=== PATIENT | male | born 1950 | race Caucasian/White ===

== ENCOUNTER 2019-09-25 13:52 | Inpatient (IN) | payer OTHER ==
[~2019-09-25] VITALS: Ht 172.7 cm; Wt 93.2 kg
--- NOTE | ~2019-09-25 | HC ---
[facility] [place] [address] CONSULTATION Name: MIRTHA COLON Room #: 211-P ADM IN M.R.#: [id number] Admission: 09/25/19 Attend Phys: Sol Daniel MD Discharge: Date of : 50 Report #: [id number] THIS REPORT FOR: cc: [facility] - Family physician unknown FAM - Family physician unknown Jean-Pierre Oconnell MD ~ CC: [facility] unknown Sol Daniel DATE OF SERVICE: 09/27/2019 HISTORY OF PRESENT ILLNESS: The patient is a 69-year-old white male who was admitted with worsening weakness, had a fall, unwitnessed at home. The weakness has been going on for a couple of weeks. He is noted to have some left-sided chest wall pain and bilateral large axillary masses, left greater than right. He has now undergone a biopsy of the left axillary mass. Workup revealed probable encasement of the subclavian vessels. We are seeing him in rehabilitation medicine consultation. PAST MEDICAL HISTORY: Includes a prior CVA with CT of the head, documenting left frontal and large right high convexity parietal infarctions. There is a large encephalomalacia of the right parietal lobe. He has a history of a seizure disorder. There is a history of past ETOH and tobacco abuse. There also is a past history of a head injury back in age 29. He was noted to be prior history of memory problems. Also has some evidence of obesity. ALLERGIES: No known drug allergies. MEDICATIONS: Please see the full medication listing. FAMILY HISTORY: Noncontributory. HABITS: Apparently quit smoking 10 years ago and he has had a prior heavy alcohol intake when younger, but no ETOH usage in the past 15 years. SOCIAL HISTORY: Lives in a house with his significant other, no steps. Premorbid cane ambulator. His significant other/lady friend, apparently does not work outside the home. REVIEW OF SYSTEMS: Did not offer any current complaints of chest pain, shortness of breath or abdominal discomfort. PHYSICAL EXAMINATION: GENERAL: A 69-year-old white male, in no obvious distress. VITAL SIGNS: Last recorded temperature 98.3, pulse 74, respirations 18, blood pressure 136/85. [facility] [address] [place] [address] CONSULTATION Name: MIRTHA COLON Room #: 211-P [facility] IN .R.#: [id number] Admission: 09/25/19 Attend Phys: Sol Daniel MD Discharge: Date of : 50 Report #: [id number] NEUROLOGIC: He is alert. He is a fair historian. He does follow basic 1 step commands. He was not aware that he had these large masses under his armpit prior to admission. Facies appeared symmetric somewhat unkempt. Band-Aid in place over the left axillary area. He does have a large firm mass in the axilla and anterior to the axillary fossa. I could not detect any focal left hand and arm weakness with gentle testing. Appears to have good strength of the right upper extremity with a good criminal investigative agent. His lower extremities tone appeared reasonably intact. Strength is probably a grade 4-/5 to 3+/5. ASSESSMENT: A 69-year-old white male with the following problem list: 1. Unwitnessed fall. 2. Increased weakness for the past 2 weeks. 3. Left-sided chest wall pain with large bilateral axillary masses. He is status post biopsy earlier today. 4. Prior cerebrovascular accident with large right parietal encephalomalacia. 5. Seizure disorder. 6. Hyperglycemia. PLAN: Therapy to evaluate. Note that his significant other is durable power of bankruptcy attorney. At this point, we will need to see how he does in therapies and follow along with you. Thank you for asking us to assist in this patient's care. By: [id number] Jean-Pierre Oconnell MD /FILIPE
--- NOTE | ~2019-09-25 | H ---
[facility] [place] [address] HISTORY AND PHYSICAL Name: MIRTHA COLON Room #: 211-P ADM IN M.R.#: [id number] Admission: 09/25/19 Attend Phys: Sol Daniel MD Discharge: Date of : 50 Report #: [id number] THIS REPORT FOR: //name// CC: FAM unknown Sol Daniel DATE OF SERVICE: 09/25/2019 The patient was seen and examined in the Emergency Room on 09/25/2019 at 6:30 p.m. PRIMARY CARE PHYSICIAN: Dunia Beltran NP, . Durable power of criminal attorney for [facility] and the emergency contact is Francisca Alcazar, . CHIEF COMPLAINT: 1. Right-sided chest wall pain for the last 2-3 days. 2. The patient sustained a fall today, at which time the EMS was brought for further evaluation. HISTORY OF PRESENT ILLNESS: The patient is a very pleasant 69-year-old gentleman with a past medical history significant for hypertension, seizure disorder, a prior stroke, and questionable coronary artery disease, but the patient is unable to recall; however, he informs me that 2-3 days ago, he started having left-sided chest wall pain and it is like a knife stuck into his arm. The patient informs me that pain is radiating in the back behind the scapular area and he also is having a little bit of discomfort on the right side, but not as much. The patient sustained a fall this morning and EMS was called by his significant other as the patient also has been noted to have progressively worsening weakness for past 2 weeks. The patient is unable to tell me how the fall happened and EMS informed the patient did not have any syncopal episode and there was no head injury involved in that, and there was no seizure activity. No urinary incontinence or stool incontinence noted either. The patient does not recall any fever, shaking chills, or night sweats. He informs me that he has nocturia 2-3 times at night, but he has not had any dysuria, frequency, urgency of urination. The patient was under the impression that his significant other Francisca Alcazar's sister Jennifer had brought him to the Emergency Room because he had been getting weaker and weaker, but RN in the Emergency Room updated the patient that he was brought by Fire Department. The patient seems to have some lapses in his memory. He is noted to have hyperglycemia; however, informs me that he has not been told to have diabetes. The patient denies any visual symptoms, vision problems, or denies any dysphagia, weakness, or numbness of any part of the body and denies any cough, cold, or exposure to respiratory symptoms in recent past. [facility] [address] [place] [address] HISTORY AND PHYSICAL Name: MIRTHA COLON Room #: 211-P [facility] IN M.R.#: [id number] Admission: 09/25/19 Attend Phys: Sol Daniel MD Discharge: Date of : 50 Report #: [id number] PAST MEDICAL HISTORY: Significant for: 1. Hypertension. 2. Seizure disorder. 3. Prior ischemic stroke. 4. Obesity. ALLERGIES: The patient has no known drug allergies. CURRENT MEDICATIONS: 1. Amlodipine. 2. Lisinopril. 3. Metoprolol. 4. Aspirin 325 mg daily. 5. Carbamazepine. 6. Keppra. 7. Gabapentin. 8. Atorvastatin. SOCIAL HISTORY: The patient informs me that he quit smoking 10 years ago approximately and he started smoking when he was 12 years old and had smoked 1 pack per day. Denies any recreational drug use. 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 PAST SURGICAL HISTORY: The patient has had a head injury when he was 29 years old and he needed to get a surgery done at that time as he recalls, but unable to give me any details of that. FAMILY HISTORY: The patient informs me that mom is alive; however, the patient has not had any contact with her. Father and he is unable to recall if he had any health problems. REVIEW OF SYSTEMS: Ten-point review of system was done and was partly limited because of the patient's inability to recall things. We will revisit review of system when one of the family members, who lives with the patient, is at the bedside. PHYSICAL EXAMINATION: VITAL SIGNS: Temperature 36.7, heart rate of 88, respirations 16, blood pressure 177/89, pulse oximeter 94% on room air, and a body mass index of 32.1 with a weight 61.24 kilos, pulse oximeter 94% on room air. GENERAL: Alert and oriented to place, being a hospital, but does not know name of the hospital and oriented to person and is in no acute distress. HEENT: The patient has atraumatic and normocephalic head. Pupils are equally round and reactive to light and conjunctivae clear. Extraocular muscle movement intact. The patient is able to follow directions for physical exam. Oropharynx [facility] [address] [place] [address] HISTORY AND PHYSICAL Name: MIRTHA COLON Room #: 211-P [facility] IN .R.#: [id number] Admission: 09/25/19 Attend Phys: Sol Daniel MD Discharge: Date of : 50 Report #: [id number] is clear. Uvula midline. Angle of mouth symmetrical. Mucous membranes are moist. NECK: Supple, no JVD, no lymphadenopathy. HEART: S1, S2, regular. No murmur, no S3, no S4. LUNGS: Clear to auscultation with distant breath sounds noted. CHEST WALL: The patient has a large axillary mass with ill-defined margins; however, the patient is uncomfortable with the exam with extension of the axilla as well as posteriorly. The patient also has a mass in the right axilla noted as well. NECK: Supple. No JVD, no lymphadenopathy. ABDOMEN: Soft, nontender, nondistended, normal active bowel sounds, obese abdomen, hard to evaluate organomegaly. EXTREMITIES: The patient has no edema both lower extremities. NEUROLOGIC: The patient is moving all 4 extremities and has normal tone and deep tendon reflexes are 2/4 at knees bilaterally. SKIN: Without any skin breakdown. LABORATORY DATA AND X-RAYS: The patient had a urinalysis with pH 5.5, specific gravity 1.020, and trace protein, otherwise completely negative urinalysis. Coagulation panel: PT 10.5, INR 1.0, PTT 26.2. Chemistries indicate a phosphorus of 3.2, magnesium 1.9, BUN 20, creatinine 1.2, sodium 140, potassium low at 3.0, chloride 102, bicarbonate 28, anion gap 10, BUN 20, creatinine 1.2, GFR 60, glucose elevated at 223. Hemoglobin A1c added to the labs. AST elevated at 68, ALT 82, alkaline phosphatase 108. Troponin I less than 0.06, total protein 7.9, and albumin 3.5. The patient had a chest x-ray done in the Emergency Room, which indicated no acute pulmonary process and a CT of the chest without contrast was done, which indicates huge lobular soft tissue mass, 14 x 12 x 12 cm extending into the lateral left chest wall as well as a right axillary region mass, 4.2 x 4.0 x 5.3 cm, and the lungs are clear, heart size is normal, and no evidence of mediastinal adenopathy noted. Thoracolumbar spondylosis noted, probable encasement of his subclavian vessels noted. Electrocardiogram was done in the Emergency Room, which indicates a normal sinus rhythm with possible old anteroseptal infarct. No previous EKG available for comparison. ASSESSMENT AND PLAN: 1. Unwitnessed fall. The patient has normal neurological exam and no evidence of head injury; however, we will go ahead and get a CT C-spine as well as CT head noncontrast. The patient denies any syncopal episode; however, we will place fall precautions and PT, OT consult. 2. Left-sided chest wall pain with bilateral large masses. We will go ahead and place General Surgery consult and we will wait for their feedback on whether to involve CTS. The patient has taken 325 mg aspirin every day. At this time, we will hold and change it to 81 mg daily aspirin [place] [address] HISTORY AND PHYSICAL Name: MIRTHA COLON Room #: 211-P ADM IN M.R.#: [id number] Admission: 09/25/19 Attend Phys: Sol Daniel MD Discharge: Date of : 50 Report #: [id number] further surgery plan. Also, we will discuss with durable power of criminal attorney for health and significant other about duration of this mass and we will try to contact the PCP as well. 3. Hypertension, poorly controlled. We will resume all blood pressure medications. Sinus bradycardia is noted during hospital stay and so we will cut back on metoprolol and monitor heart rate and blood pressure. 4. Seizure disorder. The patient is on Keppra and carbamazepine, we will resume and discuss with the DPOA about neurologist as well as when was the last seizure, and may need a Keppra levels and carbamazepine levels with tomorrow morning labs. 5. Hyperglycemia noted. The patient denies any history of diabetes. A1c is requested and we will go ahead and do Accu-Cheks q.i.d., a.c., and at bedtime and sliding scale insulin. 6. Prior questionable history of coronary artery disease, stroke, and a traumatic brain injury as the patient recalls when he was 29 years old; however, we will get a detailed history from the DPOA and significant other who has been with the patient for more than 30 years and see if we can get more history on these health problems or issues or if we can contact PCP. We will get medical records from Dr. Malcolm and Dunia Beltran. 7. CODE STATUS: The patient is a full code. 8. Deep venous thrombosis prophylaxis with Lovenox and gastrointestinal prophylaxis with Pepcid. By: [id number] Sol Daniel MD /nt
[2019-09-25 13:52] VITALS: BP 177/89
[2019-09-25] MEDS ORDERED: CARBAMAZEPINE100 M2 PO (14:32)
[2019-09-25] MEDS ORDERED: NEURONTIN 300M300 M2 PO (14:32)
[2019-09-25] MEDS ORDERED: NEURONTIN300 MG PO (14:32)
[2019-09-25] MEDS ORDERED: LOPRESSOR50 MG PO (14:33)
[2019-09-25] MEDS ORDERED: AMLODIPINE BESY10 MG PO (14:33)
[2019-09-25] MEDS ORDERED: ASPIRIN325 PO (14:34)
[2019-09-25] MEDS ORDERED: LIPITOR40 MG PO (14:50)
[2019-09-25] MEDS ORDERED: KEPPRA XR750 MG PO (14:51)
[2019-09-25] MEDS ORDERED: LISINOPRIL2.5 MG PO (14:51)
[2019-09-25 15:28] LABS: ABSOLUTE NEUTROPHILS 9.2 thou/uL (1.4-8.2); BASOPHILS 0.7 % (0.0-2.0); EOSINOPHILS 0.9 % (0.0-3.0); HEMATOCRIT 44.3 % (42.0-52.0); LYMPHOCYTES 9.5 % (24.0-44.0); MCV 91.2 fL (80.0-100.0); MONOCYTES 7.1 % (1.0-8.0); PLATELET COUNT 191 thou/uL (150-400); POLYS 81.8 % (36.0-66.0); RBC 4.86 mil/uL (4.50-6.00); RDW 14.1 % (10.5-14.5); WBC 11.2 thou/uL (4.0-11.0)
[2019-09-25 16:14] LABS: ANION GAP 10 mmol/L (7-16); BUN 20 mg/dL (7-18); CALCIUM 8.6 mg/dL (8.5-10.1); CHLORIDE 102 mmol/L (98-107); CO2 28 mmol/L (21-32); CREATININE 1.2 mg/dL (0.7-1.3); GLUCOSE 223 mg/dL (74-106); SODIUM 140 mmol/L (136-145)
[2019-09-25 16:19] LABS: ALBUMIN 3.5 g/dL (3.4-5.0); SGOT 68 U/L (15-37); SGPT 82 U/L (30-65); TOTAL BILIRUBIN 0.5 mg/dL (<0.1-1.0); TOTAL PROTEIN 7.9 g/dL (6.4-8.2); TROPONIN-I <0.06 ng/mL (<0.06)
--- NOTE | 2019-09-25 16:22 | EKG ---
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1950 Requested By: Caitlyn Davis Order Number: [id number] MD: Pardeep Headley Measurements Intervals [place] Rate: 86 P: 23 TN: 188 QRS: 18 QRSD: 93 T: 15 QT: 378 QTc: 452 Interpretive Statements Sinus rhythm Probable anteroseptal infarct, old Baseline wander in lead(s) V2,V3,V6 No previous ECG available for comparison Electronically Signed On 09-25-2019 16:21:12 SYSTEMS REQUIREMENTS PLANNER by Pardeep Headley [email or web address] <ELECTRONICALLY SIGNED> By: Pardeep Headley MD 09/25/19 1621 140 140 Pardeep Headley MD /RANDY
[2019-09-25 17:36] LABS: MAGNESIUM 1.9 mg/dL (1.8-2.4); PHOSPHORUS 3.2 mg/dL (2.5-4.9)
[2019-09-25 17:44] LABS: APTT 26.2 Seconds (24.5-32.8); PROTIME 10.5 Seconds (9.3-11.4)
[2019-09-25 17:59] LABS: URINE BILIRUBIN NEGATIVE (Negative); URINE BLOOD NEGATIVE (Negative); URINE CLARITY CLEAR; URINE COLOR YELLOW; URINE GLUCOSE-RANDOM* NEGATIVE (Negative); URINE KETONES NEGATIVE (Negative); URINE LEUKOCYTES-REFLEX NEGATIVE (Negative); URINE NITRITE-REFLEX NEGATIVE (Negative); URINE PROTEIN (DIPSTICK) TRACE (Negative)
[2019-09-25 21:55] VITALS: BP 162/89
[2019-09-25 22:17] VITALS: BP 162/89
[2019-09-25 23:51] VITALS: BP 177/100
[2019-09-26 04:07] LABS: GLYCOHEMOGLOBIN (HGB A1C) 5.4 % (4.8-5.6)
--- NOTE | 2019-09-26 06:08 | NUR ---
PT ARRIVED ON UNIT AROUND 2214. PT C/O PAIN TO LEFT UPPER EXTREMITY AND LEFT LOWER EXTREMITY. PT FELL ASLEEP DURING INITIAL ASSESSMENT ADMISSION. WHEN PT AWAKENED IN MORNING ADMISSION WAS COMPLETED TO BEST OF PATIENT KNOWLEDGE. HE IS UNABLE TO FULLY SIGN AND NOT FULLY ORIENTED TO GIVE INFORMATION. PT STATES THAT CAREGIVER "ANABELLE" IS THE BEST PERSON TO CONTACT HOWEVER HE DOES NOT KNOW CONTACT INFORMATION. WILL CONTINUE TO MONITOR PT THRU NIGHT PER PHYSICIAN ORDERS.
[2019-09-26 06:09] LABS: ABSOLUTE NEUTROPHILS 5.9 thou/uL (1.4-8.2); BASOPHILS 0.7 % (0.0-2.0); EOSINOPHILS 1.5 % (0.0-3.0); HEMOGLOBIN 14.3 gm/dL (14.0-18.0); LYMPHOCYTES 21.5 % (24.0-44.0); MCH 31.8 pg (26.0-34.0); MCHC 34.8 g/dL (28.0-37.0); MCV 91.4 fL (80.0-100.0); MONOCYTES 9.6 % (1.0-8.0); PLATELET COUNT 162 thou/uL (150-400); POLYS 66.7 % (36.0-66.0); RBC 4.49 mil/uL (4.50-6.00); RDW 14.2 % (10.5-14.5); WBC 8.8 thou/uL (4.0-11.0)
[2019-09-26 06:41] LABS: CALCIUM 8.3 mg/dL (8.5-10.1); CREATININE 1.1 mg/dL (0.7-1.3); PHOSPHORUS 3.9 mg/dL (2.5-4.9); POTASSIUM 3.6 mmol/L (3.5-5.1)
[2019-09-26 07:40] VITALS: BP 180/89
[2019-09-26 11:30] VITALS: BP 177/81
[2019-09-26 16:30] VITALS: BP 152/83
--- NOTE | 2019-09-26 17:24 | NUR ---
Case opened to follow for dc planning. Warehouse Laborer visited with the pt and his sign other/caregiver Francisca at bedside. The pt indicates he had a stroke 2 years ago and he [place] [facility] He had some hh after but had been doing pretty well. His sign other lives with him. Their home has no steps to enter and is all on one level. He functions with a rwalker and has a w/c. He was supervision with toileting and bathing prior to admission. He c/o pain and chills. Nursing notified. He is worried that he has cancer. He indicates that he is receptive to hh or rehab pending his progress. He feels like his lt sided weakness is worse than normal and is concerned about his mobility. Cm role introduced. Will ask for therapy evals and a Rehab consult.
[2019-09-26 19:55] VITALS: BP 167/85
[2019-09-27 04:50] VITALS: BP 176/112
--- NOTE | 2019-09-27 05:45 | NUR ---
ASSUMED PT CARE AROUND 1910. PT RESTING IN BED. PT IS ALERT AND ORIENTED AT TIMES BUT CAN BE FORGETFUL. PT C/O PAIN TO LEFT ARM. PT CAN BE INCONTINENT AT TIMES AND CONDOM CATH PLACED. PT WAS ABLE TO REST THRU NIGHT WITH MINIMAL INTERRUPTIONS. WILL CONTINUE TO MONITOR PT PER PLAN OF CARE.
[2019-09-27 07:20] VITALS: BP 182/98
[2019-09-27 10:00] VITALS: BP 136/85
--- NOTE | 2019-09-27 14:59 | NUR ---
THERAPY RECOMMENDING REHAB STAY. PT AND HIS SIGN OTHER ANABELLE ARE AGREEABLE. [facility] IN PROGRESS AND THEY DO HAVE A BED TODAY IF ACCEPTED. [facility] WOULD BE HIS SECOND CHOICE IF [facility] DENIES. [facility] MIGHT BE A SNF OPTION IF NEEDED. PT'S S.O. CONFIRMS THAT THE PT IS NORMALLY INDEP WITH GAIT AND ADL'S. SHE PROVIDES SUPERVISION AND SOME SETUP WELL IADL'S IN THE HOUSE. HE IS MOTIVATED TO RETURN HOME INDEP POSSIBLE.
[2019-09-27] MEDS ORDERED: ASA81BEC PO (15:18)
[2019-09-27] MEDS ORDERED: FLOMAX0.4 MG PO (15:20)
[2019-09-27] MEDS ORDERED: ENOXAPARIN40 MG/0.1 SUBQ (15:20)
[2019-09-27] MEDS ORDERED: IPRAT-ALBUT 0.5-3 ML INH (15:21)
--- NOTE | 2019-09-27 16:47 | NUR ---
ASSUMMED PT CARE AT APPROXIMATELY 0700. PT AWAKE AND ORIENTED TO PERSON, SITUATION, AND TIME. ASSESSMENT CHARTED. FALL PRECAUTIONS IN PLACE. PT DENIES HAVING CHEST PAIN. PT DENIES HAVING SOB. PT STATED HIS L SIDE AND L UPPER EXTREMITY HAD PAIN. PT RECIEVED ANALGESICS. PT STATED ANALGESICS HELPED RELIEVE PAIN. PT HAD L MASS BIOPSY TODAY. PT DISCHARGING TO [facility] TODAY. IV DC. TELE DC. VITAL SIGNS STABLE. BLOOD SUGARS STABLE. PT COMFORTABLE. PT DENIES HAVING FURTHER CONCERNS. PT RECIEVED DISCHARGE EDUCATION. PT STATED UNDERSTANDING AND DENIED HAVING FURTHER CONCERNS.
[2019-09-27] MEDS ORDERED: TEGRETOL200 MG PO (20:51)
[2019-09-27] MEDS ORDERED: KEPPRA 500 MG500 MG PO (20:52)
== END 2019-09-27 17:08 | DRG 581 ==
LOC: ER 13:52 → 2N 17:25 → EROBS 17:25 → 2N 22:10 → ENTRNSPT 09-27 16:48 → 2N 09-27 17:08
PROVIDERS: Physician Assistant; ADMIT Internal Medicine
PROC: 07B63ZX Excision of Left Axillary Lymphatic, Percutaneous Approach, Diagnostic (ICD-10-PCS; principal; 2019-09-27)
DX: R22.2 Localized swelling, mass and lump, trunk (principal); I10 Essential (primary) hypertension; E87.6 Hypokalemia; G40.909 Epilepsy, unspecified, not intractable, without status epilepticus; R73.9 Hyperglycemia, unspecified; E66.9 Obesity, unspecified; F03.90 Unspecified dementia, unspecified severity, without behavioral disturbance, psychotic disturbance, mood disturbance, and anxiety; J44.9 Chronic obstructive pulmonary disease, unspecified; Z86.73 Personal history of transient ischemic attack (TIA), and cerebral infarction without residual deficits; Z68.31 Body mass index [BMI] 31.0-31.9, adult
CPT/HCPCS: 10081

== ENCOUNTER 2019-09-27 16:04 | Inpatient (IN) | payer OTHER ==
[~2019-09-27] VITALS: Ht 172.7 cm; Wt 93.4 kg
--- NOTE | ~2019-09-27 | PLAN ---
[facility] [address] [address] REHAB UNIT PLAN OF CARE Name: MIRTHA COLON Room #: 511-P ADM IN M.R.#: [id number] Admission: 09/27/19 Attend Phys: Jean-Pierre Oconnell MD Discharge: Date of : 50 Report #: [id number] THIS REPORT FOR: //name// CC: Jean-Pierre Oconnell [facility] unknown DATE OF SERVICE: 09/30/2019 PROGRESS NOTE AND OVERALL PLAN OF CARE SUBJECTIVE: The patient was seen back today in followup. He is in no distress. Temperature 98.8, pulse 105, respirations 24, blood pressure 157/79. The patient is alert. He has some discomfort as expected in left axillary area. He needs some encouragement as far as participating in therapies. He has been dependent for upper body dressing and lower body dressing, max assist of 2 for basic transfers. ASSESSMENT: 1. Medical complexity with generalized debilitation. 2. Unwitnessed fall. 3. Large bilateral axillary masses, left greater than right, status post biopsy of the left axillary area. 4. Prior cerebrovascular accident with large right parietal encephalomalacia. 5. Past history of closed head injury. 6. Premorbid memory decrease. 7. Seizure disorder. 8. Hyperglycemia. PLAN: The overall plan of care is based on the preadmission screen, post-admission physician evaluation and information garnered from therapy assessments. 1. Estimated length of stay is probably at least 10 days to 2 weeks. 2. Medical prognosis is reasonably good. 3. Anticipated interventions includes the interdisciplinary acute inpatient rehabilitation program. 4. Anticipated functional outcomes would be for the patient to hopefully improve as far as transfers, mobility, ADLs so that he can return back to the home setting. 5. Discharge destination would be back home to the house with his significant other. 6. Expected therapy by discipline includes PT, OT and speech 1 hour per day each five days a week throughout the duration of the acute inpatient rehabilitation stay. [facility] [address] [place] [address] REHAB UNIT PLAN OF CARE Name: MIRTHA COLON Room #: 511-P [facility] IN ..#: [id number] Admission: 09/27/19 Attend Phys: Jean-Pierre Oconnell MD Discharge: Date of : 50 Report #: [id number] ADDENDUM: The patient did miss some speech therapy in 09/28/2019 secondary to complaints of pain and refusal. By: [id number] Jean-Pierre Oconnell MD /[facility]
--- NOTE | ~2019-09-27 | H ---
[facility] [place] [address] HISTORY AND PHYSICAL Name: MIRTHA COLON Room #: 511-P ADM IN M.R.#: [id number] Admission: 09/27/19 Attend Phys: Jean-Pierre Oconnell MD Discharge: Date of : 50 Report #: [id number] THIS REPORT FOR: //name// CC: Jean-Pierre Oconnell [facility] unknown DATE OF SERVICE: 09/27/2019 HISTORY AND PHYSICAL/POST ADMISSION PHYSICIAN EVALUATION HISTORY OF PRESENT ILLNESS: The patient is a 69-year-old white male who was originally admitted to [facility] on 09/25/2019 with worsening weakness and had a fall, unwitnessed at home. The weakness has been going on for a couple of weeks. He was noted to have some left-sided chest wall pain and noted to have large bilateral axillary masses, left greater than right. He underwent a biopsy of the left axillary mass yesterday with results pending. Surgery is following. Workup revealed probable encasement of the subclavian vessels and my understanding is that there would be considerable surgical risk in trying to remove these masses. With his overall generalized weakness, functional decline he has now been admitted for acute in-hospital inpatient rehabilitation. PAST MEDICAL HISTORY: Includes a prior CVA with CT of the head documenting, left frontal and large right high convexity parietal infarction. There is a large encephalomalacia of the right parietal lobe. He has a history of a seizure disorder. There is a history of past ETOH and tobacco abuse. He also has a history of a head injury back when he was 29 years old. He does have a prior history of memory problems. There also has a history of obesity. ALLERGIES: No known drug allergies. MEDICATIONS: Please see the full medication listing. FAMILY HISTORY: Noncontributory. HABITS: Apparently quit smoking 10 years ago and had a prior history of heavy alcohol intake when he was younger, but no ETOH usage in the past 15 years. SOCIAL HISTORY: He lives in a house with his significant other, no steps. Premorbid cane ambulator. His significant other lady friend apparently does not work ____ inside the home. REVIEW OF SYSTEMS: No complaints of chest pain, shortness of breath or abdominal discomfort. PHYSICAL EXAMINATION: [facility] [address] [place] [address] HISTORY AND PHYSICAL Name: MIRTHA COLON Room #: 511-P [facility] IN ..#: [id number] Admission: 09/27/19 Attend Phys: Jean-Pierre Oconnell MD Discharge: Date of : 50 Report #: [id number] GENERAL: A 69-year-old white male who was seen earlier, in no obvious distress. VITAL SIGNS: Temperature 36.2, pulse 80, respirations 22, blood pressure 141/76. The patient was sleepy, but arouses without difficulty. HEENT: Facies appeared symmetric. He is a fair historian, will follow basic 1 step commands. CHEST: Some mild decreased breath sounds. CARDIOVASCULAR: Heart sounds are regular rate and rhythm. ABDOMEN: Obese, bowel sounds positive, nontender. GENITOURINARY AND RECTAL: Deferred. EXTREMITIES: He does have large masses under his armpit and around the scapula, especially on the left greater than right. Band-Aid in place over the left axillary area. There is a large firm mass in axillary area and anterior to it the axillary area. No focal left hand and arm weakness with gentle testing. 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 Lower extremities; tone appeared to be intact. Strength is probably a grade 3+ to 4-/5. DTRs are trace to 1. He is needing assistance with basic functional mobility skills. ASSESSMENT: 1. Medical complexity with generalized debilitation. 2. Unwitnessed fall. 3. Large bilateral axillary mass, status post biopsy of the left axillary area yesterday. 4. Prior cerebrovascular accident with large right parietal encephalomalacia. 5. Past history of closed head injury. 6. Premorbid memory decrease. 7. Seizure disorder. 8. Hyperglycemia. PLAN: The patient is admitted for acute in-hospital inpatient rehabilitation. From a postadmission physician evaluation perspective, there are no relevant changes since the preadmission screening. Please see the above review of prior and current medical and functional conditions and comorbidities. Please see the patient's previous and current functional status. As far as risk of complications, the patient has multiple medical comorbidities as noted above. Initial plan of care involves the interdisciplinary acute inpatient rehabilitation program with goal of maximizing the patient's functional independence, so that he can hopefully return back to his prior living situation. Measurable functional goals would be for him to become modified independent at least at the walker level for mobility and ADLs and also to improve as far as cognition. Prognosis is reasonably good with estimated length of stay probably at least 10 days to 2 weeks. Potential barriers would include his multiple medical comorbidities and decreased functional status. The patient meets diagnostic criteria for an acute in-hospital inpatient rehabilitation stay. He meets the medical necessity criteria. We will have the [facility] [address] [place] [address] HISTORY AND PHYSICAL Name: MIRTHA COLON Room #: 511-P ADM IN M.R.#: [id number] Admission: 09/27/19 Attend Phys: Jean-Pierre Oconnell MD Discharge: Date of : 50 Report #: [id number] knowledge management consultant physicians continue to follow. He does have the tolerance for therapies and has appropriate discharge goals back to the home setting. By: [id number] Jean-Pierre Oconnell MD /nt
--- NOTE | ~2019-09-27 | HC ---
[facility] [place] [address] CONSULTATION Name: MIRTHA BURGOS Room #: 511-P ADM IN M.R.#: [id number] Admission: 09/27/19 Attend Phys: Jean-Pierre Oconnell MD Discharge: Date of : 50 Report #: [id number] THIS REPORT FOR: cc: FAM - Family physician unknown FAM - Family physician unknown Adrian Carmichael DO ~ CC: Jean-Pierre Oconnell [facility] unknown DATE OF SERVICE: 10/08/2019 REQUESTING PHYSICIAN: Dr. Oconnell and also Dr. Galindo. CHIEF COMPLAINT: Possible cancerous mass of chest wall and bilateral axillary. HISTORY OF PRESENT ILLNESS: The patient is a 69-year-old male who presented initially to inpatient rehabilitation for cerebrovascular disease. His initial presentation was on 09/27/2019. The patient initially admitted to [facility] on 09/25/2019 with worsening weakness and fall. He had a prior history of CVA, left frontal and large right high convexity of parietal ____. He has some memory deficits in the past. The patient unfortunately was discovered to have large bilateral axillary mass. He is status post biopsy of the left axillary mass. Unfortunately, pathology requested additional biopsy material. Dr. Galindo has been consulted and felt that unfortunately that his case would not significantly benefit from oncological intervention as his overall prognosis is poor given the extensiveness of disease and the extensiveness of his medical condition. The patient at this point in time is understanding of this. He is interested in hearing about palliative care type options. Currently, reports that his only discomfort is his positioning at this point in time. PAST MEDICAL HISTORY: Cerebrovascular disease as per HPI, hypertension, seizure disorder, BPH, CKD stage III. ALLERGIES: No known drug allergies. ADVANCED DIRECTIVE: Full code. MEDICATIONS: See full medication reconciliation. FAMILY HISTORY: Noncontributory. SOCIAL HISTORY: Lives in a house with his significant other. No current tobacco, alcohol or illicit drug use. REVIEW OF SYSTEMS: [facility] [address] [place] [address] CONSULTATION Name: MIRTHA BURGOS Room #: 511-P [facility] IN M.R.#: [id number] Admission: 09/27/19 Attend Phys: Jean-Pierre Oconnell MD Discharge: Date of : 50 Report #: [id number] GENERAL: Denies any recent significant weight changes. No fevers or chills. CARDIOVASCULAR: Denies chest pain, palpitations. Does have minimal lower extremity edema. RESPIRATORY: Denies shortness of breath, cough or wheezing currently. ABDOMEN: Denies nausea, vomiting, constipation, or diarrhea. MUSCULOSKELETAL: Does report back discomfort secondary to positioning. PHYSICAL EXAMINATION: VITAL SIGNS: Temperature 36.8, pulse 72, respirations 20, blood pressure 118/83, 97% on room air. GENERAL: The patient appears to be alert, oriented x3. He is in no acute distress. HEENT: Extraocular muscles appear to be intact. Normocephalic and atraumatic. CARDIOVASCULAR: Regular rate and rhythm without murmur. LUNGS: Clear to auscultation bilaterally. No wheezes or rhonchi. ABDOMEN: Soft, nontender to palpation x 4, positive bowel sounds in all 4 quadrants. EXTREMITIES: Appears to be generalized weakness diffusely. LABORATORY DATA: These include most recent white blood cell 11.2, creatinine is 1.2. ASSESSMENT AND PLAN: 1. Chest wall mass. At this time, may represent multiple different origins, but likely to be cancerous process. Oncology feels the patient is not ____ candidate for therapy. I did discuss palliative care measures including hospice at long-term care and hospice at home or palliative care at the location. Additionally, discussed advance directives and discussed that these decisions regarding these are important and discussed the overall options including skilled therapy, long-term care without hospice. The patient is deciding that additionally, he seeks the support of his surrogate decision maker, which is Dayami Burgos. We will attempt to reach out today. Spent approximately 25 minutes on advanced care planning on discussion today. 2. Cerebrovascular disease. Appreciate therapy input. At this time, again he has significant cerebrovascular disease history and overall maybe not an excellent candidate for treatment of the cancerous process, but did discuss the whole additional options at this time. Thank you very much for this consultation. Please contact me further for any questions regarding this consult. We will attempt to reach out to surrogate decision maker to attempt to discuss further. By: [id number] Adrian Carmichael, /nt
[~2019-09-27 16:04] MED LIST: AMLODIPINE BESY10 MG PO; ASA81BEC PO; ASPIRIN325 PO; CARBAMAZEPINE100 M2 PO; ENOXAPARIN40 MG/0.1 SUBQ; FLOMAX0.4 MG PO; IPRAT-ALBUT 0.5-3 ML INH; KEPPRA XR750 MG PO; LIPITOR40 MG PO; LISINOPRIL2.5 MG PO; LOPRESSOR50 MG PO; NEURONTIN 300M300 M2 PO; NEURONTIN300 MG PO
[2019-09-27 18:36] VITALS: BP 163/80
[2019-09-27 19:50] VITALS: BP 147/99
[2019-09-27] MEDS ORDERED: TEGRETOL200 MG PO (20:51)
[2019-09-27] MEDS ORDERED: KEPPRA 500 MG500 MG PO (20:52)
[2019-09-28 06:50] LABS: HEMOGLOBIN 15.5 gm/dL (14.0-18.0); MCH 31.2 pg (26.0-34.0); MCHC 34.3 g/dL (28.0-37.0); RBC 4.95 mil/uL (4.50-6.00); RDW 14.5 % (10.5-14.5); WBC 12.3 thou/uL (4.0-11.0)
[2019-09-28 07:01] LABS: CALCIUM 8.5 mg/dL (8.5-10.1); CREATININE 1.1 mg/dL (0.7-1.3); POTASSIUM 3.8 mmol/L (3.5-5.1)
[2019-09-28 09:27] VITALS: BP 141/76
[2019-09-28 20:00] VITALS: BP 133/64
[2019-09-29 09:26] VITALS: BP 122/57
[2019-09-29 10:59] LABS: ABSOLUTE NEUTROPHILS 9.8 thou/uL (1.4-8.2); BASOPHILS 0.7 % (0.0-2.0); EOSINOPHILS 0.5 % (0.0-3.0); HEMATOCRIT 48.3 % (42.0-52.0); HEMOGLOBIN 16.3 gm/dL (14.0-18.0); LYMPHOCYTES 13.1 % (24.0-44.0); MCH 31.5 pg (26.0-34.0); MCHC 33.8 g/dL (28.0-37.0); MCV 93.1 fL (80.0-100.0); MONOCYTES 6.1 % (1.0-8.0); PLATELET COUNT 242 thou/uL (150-400); POLYS 79.6 % (36.0-66.0); RBC 5.19 mil/uL (4.50-6.00); RDW 14.6 % (10.5-14.5); WBC 12.3 thou/uL (4.0-11.0)
[2019-09-29 11:21] LABS: ALBUMIN 2.9 g/dL (3.4-5.0); CALCIUM 8.7 mg/dL (8.5-10.1); CREATININE 1.5 mg/dL (0.7-1.3); POTASSIUM 3.5 mmol/L (3.5-5.1); TOTAL BILIRUBIN 0.4 mg/dL (<0.1-1.0); TOTAL PROTEIN 7.4 g/dL (6.4-8.2)
[2019-09-29 11:38] LABS: MAGNESIUM 2.6 mg/dL (1.8-2.4)
[2019-09-29 22:45] VITALS: BP 157/79
[2019-09-30 05:35] LABS: ABSOLUTE NEUTROPHILS 8.8 thou/uL (1.4-8.2); BASOPHILS 0.3 % (0.0-2.0); EOSINOPHILS 0.6 % (0.0-3.0); HEMATOCRIT 42.5 % (42.0-52.0); HEMOGLOBIN 14.5 gm/dL (14.0-18.0); LYMPHOCYTES 10.8 % (24.0-44.0); MCH 31.7 pg (26.0-34.0); MCHC 34.2 g/dL (28.0-37.0); MCV 92.6 fL (80.0-100.0); MONOCYTES 9.7 % (1.0-8.0); PLATELET COUNT 205 thou/uL (150-400); POLYS 78.6 % (36.0-66.0); RDW 14.9 % (10.5-14.5); WBC 11.2 thou/uL (4.0-11.0)
[2019-09-30 06:11] LABS: ALBUMIN 2.5 g/dL (3.4-5.0); CALCIUM 7.9 mg/dL (8.5-10.1); CREATININE 1.2 mg/dL (0.7-1.3); MAGNESIUM 2.4 mg/dL (1.8-2.4); PHOSPHORUS 3.5 mg/dL (2.5-4.9); POTASSIUM 3.7 mmol/L (3.5-5.1); TOTAL BILIRUBIN 0.8 mg/dL (<0.1-1.0); TOTAL PROTEIN 6.6 g/dL (6.4-8.2)
--- NOTE | 2019-09-30 06:58 | HC ---
[facility] [place] [address] CONSULTATION Name: MIRTHA COLON Room #: 511-P ADM IN M.R.#: [id number] Admission: 09/27/19 Attend Phys: Jean-Pierre Oconnell MD Discharge: Date of : 50 Report #: [id number] THIS REPORT FOR: cc: MIRTHA - Family physician unknown FAM - Family physician unknown Romero Caro PhD ~ CC: Jean-Pierre Oconnell [facility] unknown DATE OF SERVICE: 09/29/2019 NEUROBEHAVIORAL STATUS EXAM. ATTENDING PHYSICIAN: Jean-Pierre Oconnell MD RESEARCH CHEMICAL ENGINEER: Romero Caro, PhD CLINICAL PRESENTATION: The patient is a 69-year-old white male admitted to the rehabilitation unit for comprehensive inpatient rehabilitation program. He carries a diagnosis of medical complexity with generalized debilitation, unwitnessed fall, large bilateral axillary mass status post biopsy, prior CVA with large right parietal encephalomalacia, past history of closed head injury, premorbid memory disease, seizure disorder and hyperglycemia. A complete description of his medical condition and history can be found in his medical record. Neuropsychological consultation was requested to provide assistance in the assessment of cognitive and emotional status and to provide recommendations and services. Prior to this most recent admission, he was living in his home. He reports having been living alone, Although, medical records indicate that he was living with a signficiant other. The patient states that he was driving and independent with instrumental activities of daily living. He reports having had 2 children. 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 He indicates having been a high school graduate. TECHNIQUES UTILIZED: Clinical interview, review of medical records, staff consultation and behavioral observation, attempts at the mini mental status exam 2 standard version - attempted. EXAMINATION FINDINGS: The patient was sluggish and drowsy during the assessment. He was unable to accurately indicate the reason for his hospitalization, stating that he had a stroke. However, that is not the reason for this current hospitalization. He reports his symptoms to include sleep disturbance, appetite, memory, anxiety and depression along with being tired and fatigued. Prior skull fracture is reported. He does not report prior treatment for mood disorder. He does have a remote history of alcohol and drug [facility] [address] [place] [address] CONSULTATION Name: MIRTHA COLON Room #: 511-P ADM IN M.R.#: [id number] Admission: 09/27/19 Attend Phys: Jean-Pierre Oconnell MD Discharge: Date of : 50 Report #: [id number] abuse, which he reports has been discontinued. The patient was not cooperative with the assessment of mental status. He required much encouragement to maintain attention and alertness to the task. He was not oriented to time; however, minimal effort was exerted. His mood appears irritable. DIAGNOSTIC IMPRESSION: Major neurocognitive disorder (dementia), unspecified - with decreased cooperation and irritability - extent to be determined, likely moderate (assistance needed for medation, financial and nutritional managment) Unspecified depressive disorder RECOMMENDATIONS: It is difficult to determine his actual level of cognitive functioning as he presents as sedated with difficulty in maintaining arousal and with poor engagement during the assessment. His cooperation was minimal. However, continued assistance in the home will likely be necessary for him to maintain safety. Thank you very much for allowing me to provide the consultation on this patient. <ELECTRONICALLY SIGNED> By: Romero Caro, PhD 09/30/19 [id number] Romero Caro, PhD /nt
[2019-09-30 08:00] VITALS: BP 152/76
[2019-09-30 17:57] LABS: URINE BILIRUBIN NEGATIVE (Negative); URINE BLOOD TRACE (Negative); URINE CLARITY CLEAR; URINE COLOR YELLOW; URINE GLUCOSE-RANDOM* NEGATIVE (Negative); URINE KETONES NEGATIVE (Negative); URINE LEUKOCYTES-REFLEX NEGATIVE (Negative); URINE NITRITE-REFLEX NEGATIVE (Negative); URINE PROTEIN (DIPSTICK) 1+ (Negative); URINE SPECIFIC GRAVITY 1.025 (1.005-1.035)
[2019-09-30 18:07] LABS: CASTS None Seen /LPF (None Seen); MUCUS 0-3 Light strn/LPF (None Seen); SQUAMOUS 0-3 Few /LPF (0-3)
[2019-09-30 18:10] LABS: BACTERIA-REFLEX 1-9 Few /HPF (None Seen); URIC ACID CRYSTALS >10 Many /LPF (None Seen); URINE RBC 0-2 Rare /HPF (0-2); URINE WBC-REFLEX 0-5 Rare /HPF (0-5)
[2019-09-30 19:52] VITALS: BP 111/53
[2019-10-01 08:00] VITALS: BP 142/76
[2019-10-01 19:30] VITALS: BP 138/56
[2019-10-01 23:08] LABS: URINE BLOOD TRACE (Negative); URINE CLARITY CLEAR; URINE COLOR YELLOW; URINE GLUCOSE-RANDOM* NEGATIVE (Negative); URINE KETONES NEGATIVE (Negative); URINE LEUKOCYTES-REFLEX NEGATIVE (Negative); URINE NITRITE-REFLEX NEGATIVE (Negative); URINE PROTEIN (DIPSTICK) 1+ (Negative); URINE SPECIFIC GRAVITY >= 1.030 (1.005-1.035); URINE UROBILINOGEN >= 8.0 E.U./dl (0.2-1.0)
[2019-10-01 23:09] LABS: ICTOTEST (BILI CONFIRMATORY) Negative (Negative); URINE BILIRUBIN NEGATIVE (Negative)
[2019-10-01 23:21] LABS: CASTS None Seen /LPF (None Seen); SQUAMOUS 0-3 Few /LPF (0-3); URIC ACID CRYSTALS 0-3 Few /LPF (None Seen)
[2019-10-01 23:22] LABS: BACTERIA-REFLEX 1-9 Few /HPF (None Seen); URINE RBC 0-2 Rare /HPF (0-2); URINE WBC-REFLEX None Seen /HPF (0-5)
[2019-10-02 08:00] VITALS: BP 113/59
[2019-10-02 19:20] VITALS: BP 145/76
[2019-10-03 08:38] VITALS: BP 138/74
[2019-10-03 20:00] VITALS: BP 146/76
[2019-10-04 09:47] VITALS: BP 149/85
[2019-10-04 12:50] VITALS: BP 130/78
[2019-10-04 20:04] VITALS: BP 184/91
[2019-10-04 22:00] VITALS: BP 146/78
[2019-10-05 07:50] VITALS: BP 172/86
[2019-10-05 20:58] VITALS: BP 156/84
[2019-10-06 08:00] VITALS: BP 156/86
[2019-10-06 19:45] VITALS: BP 155/77
[2019-10-07 07:17] VITALS: BP 161/95
[2019-10-07 19:05] VITALS: BP 148/84
[2019-10-08 08:10] VITALS: BP 165/81
[2019-10-08 19:30] VITALS: BP 118/83
[2019-10-09 08:11] VITALS: BP 167/89
[2019-10-09 08:30] VITALS: BP 103/64
[2019-10-09 18:39] VITALS: BP 131/81
[2019-10-09 19:44] VITALS: BP 137/78
[2019-10-10 08:35] VITALS: BP 158/60
[2019-10-10 20:50] VITALS: BP 151/90
[2019-10-11 09:09] VITALS: BP 176/96
[2019-10-11] MEDS ORDERED: HALDOL 0.5 MG0.5 MG PO (13:29)
[2019-10-11] MEDS ORDERED: MSL20MG/ML PO (13:29)
[2019-10-11] MEDS ORDERED: LORAZEPAM I2 MG/1 ML PO (13:29)
[2019-10-11] MEDS ORDERED: BACLOFEN 10MG T10 MG PO (13:29)
[2019-10-11 13:36] VITALS: BP 176/94
--- NOTE | 2019-10-11 15:32 | EKG ---
[facility] [address] ELECTROCARDIOGRAM REPORT Name: MIRTHA COLON Room #: 511- ADM IN M.R.#: [id number] Admission: 09/27/19 Attend Phys: Jean-Pierre Oconnell MD Discharge: Date of : 50 Report #: [id number] THIS REPORT FOR: cc: FAM - Family physician unknown FAM - Family physician unknown Andrew Rabago MD [facility] ~ THIS REPORT FOR: //name// [facility] Test Date: 2019-10-02 Test Time: 17:32:43 Pat Name: MIRTHA COLON Department: Room: 511 Gender: M Flat Drier: Jatin LAGUERRE : 1950 Requested By: Raissa Padilla Order Number: [id number] MD: Andrew Rabago Measurements Intervals [place] Rate: 80 P: 16 DE: 179 QRS: 4 QRSD: 94 T: QT: 388 QTc: 448 Interpretive Statements Sinus rhythm Nonspecific ST segment abnormality Small inferior Q waves Baseline wander in lead(s) I,aVL Compared to ECG 09/25/2019 14:02:38 No significant changes Electronically Signed On 10-04-2019 9:18:26 CANVAS SHRINKER by Andrew Rabago [email or web address] <ELECTRONICALLY SIGNED> By: Andrew Rabago MD, [facility] 10/04/19 0918 1732 1732 Andrew Rabago MD, [facility] /EPI
== END 2019-10-11 16:45 | disposition hospice, home (50) | DRG 948 ==
PROVIDERS: Internal Medicine; Nurse Practitioner; ADMIT Physical Medicine & Rehabilitation
DX: R53.81 Other malaise (principal); G40.909 Epilepsy, unspecified, not intractable, without status epilepticus; F01.50 Vascular dementia, unspecified severity, without behavioral disturbance, psychotic disturbance, mood disturbance, and anxiety; F32.9 Major depressive disorder, single episode, unspecified; J44.9 Chronic obstructive pulmonary disease, unspecified; K21.9 Gastro-esophageal reflux disease without esophagitis; E66.9 Obesity, unspecified; Z68.31 Body mass index [BMI] 31.0-31.9, adult; N40.0 Benign prostatic hyperplasia without lower urinary tract symptoms; I12.9 Hypertensive chronic kidney disease with stage 1 through stage 4 chronic kidney disease, or unspecified chronic kidney disease; N18.3 Chronic kidney disease, stage 3 (moderate)
CPT/HCPCS: 10112